=== PATIENT | female | born 1995 | race Caucasian/White ===

== ENCOUNTER 2018-12-31 06:04 | Inpatient (IN) | payer OTHER ==
[2018-12-31] MEDS ORDERED: Methylergonovine 0.2 MG/1 ML Amp IM PRN (07:27)
[2018-12-31] MEDS ORDERED: Misoprostol 100 MCG Tab RECTAL PRN (07:28)
[2018-12-31] MEDS ORDERED: Carboprost Tromethamine 250 MCG/1 ML Amp IM ONE (07:28)
[2018-12-31] MEDS ORDERED: Tranexamic Acid 1,000 MG in Sodium Chloride 0.9% 100 ML IV ONE (07:29)
[2018-12-31] MEDS ORDERED: Oxytocin/Normal Saline 30 UNIT/500 ML BAG IV SCH (07:30)
[2018-12-31] MEDS: Lactated Ringers 1,000 ML IV ONE ×2 (07:30→13:20)
[2018-12-31] MEDS ORDERED: Methylergonovine 0.2 MG/1 ML Amp ONE (07:34)
[2018-12-31] MEDS ORDERED: Oxytocin/Normal Saline 30 UNIT/500 ML BAG ONE (07:34)
[2018-12-31] MEDS ORDERED: Lidocaine 1% 30 ML SDV ONE (07:34)
[2018-12-31] MEDS ORDERED: Misoprostol 400 MCG (4 X 100 MCG TAB) ONE (07:34)
[2018-12-31] MEDS ORDERED: Carboprost Tromethamine 250 MCG/1 ML Amp ONE (07:34)
[2018-12-31] MEDS ORDERED: Ondansetron 4 MG/2 ML SDV ONE (07:38)
[2018-12-31] MEDS ORDERED: Lidocaine 1% 30 ML SDV INJECT PRN (07:43)
[2018-12-31] MEDS ORDERED: Ondansetron 4 MG/2 ML SDV IVPUSH PRN (07:44)
[2018-12-31] MEDS ORDERED: Metoclopramide 10 MG/2 ML SDV IVPUSH PRN (07:45)
[2018-12-31] MEDS ORDERED: Famotidine 20 MG/2 ML SDV IV PRN (07:48)
[2018-12-31] MEDS ORDERED: EPINEPHrine 1 MG/1 ML Amp ONE (07:52)
[2018-12-31] MEDS ORDERED: Aluminum Hydroxide/Magnesium Hydroxide/Simethicone Susp 30 ML Cup PO PRN ×2 (07:52→13:51)
[2018-12-31] MEDS ORDERED: fentaNYL 100 MCG/2 ML SDV ONE (07:52)
[2018-12-31] MEDS ORDERED: Calcium Carbonate 500 MG Tab.Chew PO PRN (07:52)
[2018-12-31] MEDS ORDERED: Acetaminophen 325 MG Tab PO PRN ×2 (07:54→13:51)
[2018-12-31] MEDS ORDERED: fentaNYL 100 MCG/2 ML SDV IVPUSH PRN (07:56)
[2018-12-31] MEDS ORDERED: Ondansetron 4 MG Tab.DIS PO PRN (07:58)
[2018-12-31] MEDS ORDERED: Nalbuphine 10 MG/1 ML Vial IM ONE (08:00)
[2018-12-31] MEDS: Lactated Ringers 1,000 ML IV SCH (08:10)
--- NOTE | 2018-12-31 08:54 | PCM.PRNOTE ---
- Free Text/Narrative Note: Requested to provide analgesia to full term patient in severe pain. Upon entering the room, patient is sitting on edge of bed complaining of severe abdominal/pelvic pain and discomfort. Procedure was discussed with patient including adverse outcomes and expectations. Pt consented to analgesia, SAB/ IT. Pt placed into a proper sitting position. Landmarks for SAB/IT were identified and marked. Hands were washed and appropriate PPE was applied. Back was prepped with betadine x3. A sterile, transparent, fenestrated drape was applied. Excess betadine was removed. Using 3 mL of a 1% lidocaine solution , a skin wheel was placed at the L2/L3 interspace. First attempt was unsuccessful. Second attempt was same prep and local but at the L3/L4 interspace. A 24 ga (4 inch) Pencan spinal needle was inserted until positive for CSF. Negative for heme or paresthesias. Injected fentanyl 30 mcg, sufentanil 25 mcg, and 7.5 mg of a 0.75% bupivacaine solution with an epi wash. Pt was placed left lateral position for approximately 20 minutes. There were zero complications or adverse outcomes. Will continue to monitor. Procedure Date & Time: 12/31/18 [id number]
[2018-12-31] MEDS ORDERED: Ibuprofen 600 MG Tab PO PRN (13:51)
[2018-12-31] MEDS ORDERED: Tranexamic Acid 1,000 MG in Sodium Chloride 0.9% 100 ML IV PRN (13:51)
[2018-12-31] MEDS ORDERED: Methylergonovine 0.2 MG Tab PO PRN (13:51)
[2018-12-31] MEDS ORDERED: Benzocaine/Menthol 20%-0.5% Spray 56 GM Canister TOP PRN (13:51)
[2018-12-31] MEDS ORDERED: Docusate Sodium 100 MG Cap PO PRN (13:51)
[2018-12-31] MEDS ORDERED: Carboprost Tromethamine 250 MCG/1 ML Amp IM PRN (13:51)
[2018-12-31] MEDS ORDERED: Zolpidem 5 MG Tab PO PRN (13:51)
[2018-12-31] MEDS ORDERED: Misoprostol 400 MCG (4 X 100 MCG TAB) PO PRN ×2 (13:51)
[2018-12-31] MEDS ORDERED: Famotidine 20 MG Tab PO PRN (13:51)
[2018-12-31] MEDS ORDERED: Sodium Chloride 0.9% 10 ML Syringe FLUSH PRN (13:51)
[2018-12-31] MEDS ORDERED: Simethicone 80 MG Tab.Chew PO PRN (13:51)
[2018-12-31] MEDS ORDERED: Hydrocortisone 2.5% Crm 30 GM Tube TOP PRN (13:51)
[2018-12-31] MEDS ORDERED: Acetaminophen/oxyCODONE 325-5 MG Tab PO PRN ×2 (13:51)
[2018-12-31] MEDS ORDERED: Lactated Ringers 1,000 ML IV SCH (14:00)
--- NOTE | 2018-12-31 14:15 | DEL ---
DATE: 12/31/2018 Ms. Gallegos has entered the hospital at about 8:00 a.m. this morning in spontaneous labor. Her contractions did space out moderately and decreased in quality for a time. She did have some judicious and cautious low-dose Pitocin augmentation of her labor therefore, also this brought the vertex from a high -3 to -4 station down into the pelvis, and we were able to do amniotomy when the head was at 0 station. The patient was approximately 6 to 7 cm dilated when she did come in this morning. She did proceed on very nicely to have a normal spontaneous vaginal delivery at 12:36 p.m. today. The baby was delivered from the occiput anterior position. This was a viable baby girl who had excellent scores of 9 and 9 and actually the baby's weight is pending at the present time. No episiotomy was utilized and no lacerations were sustained. The placenta was spontaneous and intact after a sample of cord blood was obtained. Placenta was delivered from the shiny Patel presentation. IV Pitocin was utilized and as mentioned above the vaginal delivery occurred at 12:36 p.m. and the placenta was delivered at 12:41 p.m. Her second stage of labor was only 45 minutes. The patient has remained very stable while in the delivery room. Her estimated blood loss was approximately 250 mL. Vital signs remained stable. As mentioned above, this was a viable baby girl, and the weight is pending. [facility] /[id number]
--- NOTE | 2018-12-31 14:21 | HP ---
HISTORY: This patient is a 23-year-old 2, para 1 patient, who is well known to me and to Dr. Tristan. The patient does enter the hospital early this morning on 12/31/2018, in labor. She has had frequent visits to Labor and Delivery over the last several weeks for false labor. She was also seen yesterday on L and D by myself with a reactive nonstress test and false labor. She is currently at 37 weeks 5 days' gestation by LMP and earlier ultrasounds. She does have a history of a seizure disorder, but it has been a number of months since she did have a seizure. She is currently on 2000 mg of Keppra twice a day and is followed by Dr. Guevara and Dr. Guevara's office. She is experiencing good movement today. She denies the leaking of any definite watery fluid or excess bleeding. She denies any headache at present. PAST OBSTETRICAL HISTORY: She did have an 8-pound 12-ounce baby boy named Rico, and he will be 7 years old in a few days. That delivery occurred in [facility] previously. She did have a fair amount of pushing evidently for the delivery of Rico. He is normal and doing well at the present time. PAST MEDICAL HISTORY: Please see our discussion above. She also has had prior history of anxiety and depression as well as prior history of substance abuse, mainly in the form of alcohol a number of years ago. She has been clean and has not abused any substances for many months. OTHER PAST MEDICAL HISTORY: Please see the EHR. It should be mentioned that she is immune to rubella and her group B Strep testing is negative from the genital tract. She is negative for hepatitis C and her hepatitis B surface antigen was negative. Her blood type is A positive and antibody screen was negative. FAMILY HISTORY: Noncontributory. SOCIAL HISTORY: She is here with her , Maykel. She is a nonsmoker and does not use alcohol. She does take vitamins and she has been very compliant with her visits. She does not work outside of the home at the present time. PHYSICAL EXAMINATION: Vital Signs: Weight is 287 pounds. Please see the EHR for her normal blood pressure and pulse and temperature. HEENT: Her sclerae are nonicteric. Lungs: Clear to A. Heart: Regular rhythm without murmur. Abdomen: Gravid and did measure 37 cm in the office yesterday. Estimated weight is 7 pounds 12 ounces. Vertex is the presenting part. She has negative CVA tenderness. heart tones are reactive with category 1 monitoring strip. Vaginal exam placed her at 8-9 cm, but initially the head was at -3 to possibly up to -4 station and amniotomy was not done initially. Her extremities reveal 1+ ankle edema. IMPRESSION: at 37 weeks 5 days' gestation in true labor. We will gently augment her to try to get further descent of the vertex and then consider amniotomy when the head is engaged. Low-dose Pitocin will be utilized. Also, we will continue her Keppra dosage at 2000 mg p.o. b.i.d. She has had recent OB ultrasound ordered by Dr. Tristan that did not confirm any definite macrosomia. We will, however, keep in mind the slight possibility of macrosomia. Her maternal weight is 287 pounds as mentioned above. We do anticipate spontaneous vaginal delivery. Please see our admission orders. [facility] /[id number]
[2018-12-31] MEDS: Ibuprofen 800 MG Tab PO PRN ×2 (15:00→23:20)
[2018-12-31] MEDS: LEVETIRACETAM 1000 MG PO SCH (21:17)
[2019-01-01] MEDS: Lactated Ringers 1,000 ML IV SCH ×2 (02:57→02:58)
[2019-01-01] MEDS: LEVETIRACETAM 1000 MG PO SCH (08:30)
[2019-01-01] MEDS ORDERED: Prenatal Multivitamin with Calcium/Folic Acid/Iron Tab PO SCH (09:00)
[2019-01-01] MEDS: Ibuprofen 800 MG Tab PO PRN (10:44)
--- NOTE | 2019-01-01 11:43 | DISCH ---
HISTORY OF PRESENT ILLNESS: This patient is a 23-year-old, now 2, para 2 patient, who has been followed closely by Dr. Tristan and by myself during this . She did enter the hospital on Wednesday morning, 12/31/2018 in active labor. She was at 37 weeks 5 days gestation based on LMP and early OB ultrasounds. She does have a history of seizure disorder and is currently on Keppra [address] Guevara and Dr. Guevara's office will be keeping in contact with her regarding tapering down her Keppra in the period. She also had a remote or past history of substance abuse, mainly in the form of alcohol several years ago, but the patient has been very stable and clean for a long period of time. She has had frequent episodes of false labor with numerous visits to Labor and Delivery, and finally the patient did go into labor yesterday as mentioned above. She was actually 6 to 7 cm dilated on admission. Her contractions actually did space out and weaken for a while and gentle low-dose Pitocin augmentation was utilized. When the head came down to 0 station, the patient was at about 9 cm dilated, and we did the amniotomy at that time with clear fluid. The heart tones have been category 1 at all times. Please see our admission history and physical as well as the delivery note. The patient did proceed on nicely to have a normal spontaneous vaginal delivery from the occiput anterior position and no episiotomy was required. There were no lacerations. She did have a viable baby girl who weighed 7 pounds 6 ounces and had score of 9 and 9. Placenta was spontaneous and intact. Estimated blood loss was approximately 250 mL. The patient has done well in the period. She is breast-feeding and that has not been fully established yet. Nonetheless, the patient does wish to go home today and she will keep in close contact with our nurses and our bridal consultant if any questions or problems pertaining to breast-feeding. OTHER INSTRUCTIONS: The patient will have healthy, well-balanced nutritional measures. She will utilize roughage, fiber, fruits, and vegetables, etc. for any constipation and she does have some slight constipation at the present time. We did emphasize the importance of progressive ambulation at home and she was instructed to contact us at once if any excess bleeding, excess pain, fever, or any problems with her lower extremities or breasts or chest and lungs, etc. She assures me that she will keep us closely informed. DISCHARGE MEDICATIONS: Consist of vitamins 1 daily and Colace 100 mg p.o. b.i.d. p.r.n. #12. As mentioned above, her discharge hemoglobin was 10.0. FOLLOWUP APPOINTMENT: She will see her baby doctor on of this coming week for her little girl. The patient will see either Dr. Tristan or myself for a visit in approximately 6 weeks. FINAL DIAGNOSES: 1. at 37 weeks 5 days gestation, delivered. 2. Seizure disorder, stable at present on Keppra 2000 mg p.o. b.i.d. 3. Past history of substance abuse or alcohol abuse several years ago and very stable and clean at present. 4. Frequent false labor during . OPERATIONS AND PROCEDURES: Normal spontaneous vaginal delivery of a viable girl weighing 7 pounds 6 ounces and score of 9 and 9. [facility] /[id number]
[2019-01-01 20:14] VITALS: BP 100/31
== END 2019-01-01 16:05 | disposition home or self-care (01) | DRG 807 ==
LOC: DL.OBCHECK 06:04 → DL.OB 06:47 → OBSVTOIN 12:36
PROVIDERS: ADMIT Obstetrics & Gynecology; ATTEND Obstetrics & Gynecology
PROC: 10E0XZZ Delivery of Products of Conception, External Approach (ICD-10-PCS; principal; 2018-12-31)
DX: O99.354 Diseases of the nervous system complicating childbirth (principal); Z37.0 Single live birth; G40.909 Epilepsy, unspecified, not intractable, without status epilepticus; O99.344 Other mental disorders complicating childbirth; F41.9 Anxiety disorder, unspecified; F32.9 Major depressive disorder, single episode, unspecified; Z3A.37 37 weeks gestation of pregnancy
CPT/HCPCS: 36415; 51701; 59409; 85025; A9270-GY; J2405; J2590; J7120

== ENCOUNTER 2020-06-08 21:19 | Observation (INO) | payer OTHER, MEDICAID ==
[2020-06-09] MEDS ORDERED: Penicillin G Potassium 5 MILLUNITS in Sodium Chloride 0.9% 100 ML IV ONE (00:48)
[2020-06-09] MEDS ORDERED: Lidocaine 1% 30 ML SDV INJECT PRN (01:05)
[2020-06-09] MEDS ORDERED: Lactated Ringers 1,000 ML IV ONE (01:05)
[2020-06-09] MEDS ORDERED: Misoprostol 400 MCG (4 X 100 MCG TAB) RECTAL PRN (01:05)
[2020-06-09] MEDS ORDERED: Carboprost Tromethamine 250 MCG/1 ML Amp IM PRN (01:05)
[2020-06-09] MEDS ORDERED: Ondansetron 4 MG/2 ML SDV IVPUSH PRN (01:05)
[2020-06-09] MEDS ORDERED: Methylergonovine 0.2 MG/1 ML Amp IM PRN (01:05)
[2020-06-09] MEDS ORDERED: Tranexamic Acid 1,000 MG in Sodium Chloride 0.9% 100 ML IV PRN (01:05)
[2020-06-09] MEDS ORDERED: Sodium Chloride 0.9% 10 ML Syringe FLUSH PRN (01:05)
[2020-06-09] MEDS ORDERED: Acetaminophen 325 MG Tab PO PRN (01:05)
[2020-06-09] MEDS ORDERED: Oxytocin/Normal Saline 30 UNIT/500 ML BAG IV SCH (01:15)
[2020-06-09] MEDS ORDERED: Lactated Ringers 1,000 ML IV SCH (01:15)
[2020-06-09] MEDS ORDERED: hydrOXYzine HCl 25 MG Tab PO PRN (02:52)
[2020-06-09] MEDS ORDERED: Nalbuphine 10 MG/1 ML Vial IM PRN (02:53)
--- NOTE | 2020-06-09 02:58 | OBOUT ---
DATE: 06/08/2020 TIME: 2147. REASON FOR NST: 1. Intrauterine at 36-4/7 weeks by 9-1/7 week ultrasound. 2. Questionable labor with contractions and cervical change. 3. History of fast labor with last delivery. 4. Group B Streptococcus positive. 5. Not a transfer candidate. 6. Epilepsy on Keppra. 7. Obesity. 8. Impaired glucose tolerance. 9. renal sinus separation, now less than 10 mm in 3rd trimester. No further followup indicated per UpToDate. 10.G3, P2-0-0-2. NST INTERPRETATION: During this time period, heart tones baseline is approximately 145 to 150, with at least two 15 x 15-beats per minute accelerations, making this strip reactive as well as reassuring. Tocometer reveals potential 6 contractions during this time. Rudy by patient. ASSESSMENT: 1. Nonstress test, reactive and reassuring. 2. Tocometer with contractions. PLAN: As part of the workup, the patient was rechecked in terms of her cervical change approximately 2 hours after initial evaluation done around 2200 hours. She did have cervical change and thinning of her cervix and at the current time of dictation plan is to admit the patient, and with her group B Streptococcus status start penicillin and follow clinically and closely. The patient understands and agrees with the above treatment plan. She is not considered a transfer candidate at this point in time. She has a history of fast labor and delivery and she is at 36-4/7 weeks today. Did discuss risk of potential for prematurity. She understands and agrees and wishes to proceed with admission here in [facility] with plan for delivery here if she goes into labor. We will continue to follow clinically and closely in the meantime. [facility] /[id number] ERNESTO
[2020-06-09] MEDS: Penicillin G Potassium 3 MILLUNITS in Sodium Chloride 0.9% 100 ML IV SCH ×2 (05:45→10:00)
[2020-06-09 09:59] VITALS: BP 111/46; PULSE 90
--- NOTE | 2020-06-09 14:38 | OBOUT ---
DATE: 06/09/2020 TIME: 11:18 to 11:24. REASON FOR NST: 1. Intrauterine , now 36-4/7 weeks by 9-1/7 week ultrasound with suspected early contractions/ contractions and possible early latent labor versus just contractions that are abating. 2. History of fast labors and deliveries. 3. GBS positive. 4. Not a transfer candidate due to the above. 5. Epilepsy on Keppra. 6. Obesity. 7. Impaired glucose tolerance. 8. History of renal sinus separation. 9. Questionable vaginal leaking with negative AmniSure. 10.G3, P2-0-0-2. NST INTERPRETATION: During this time period, heart tones baseline is approximately 120 beats, with at least two 15 x 15 beats per minute accelerations, making this strip reactive as well as reassuring. Tocometer reveals no evidence of contractions. Temperature 96.8, blood pressures have been stable. ASSESSMENT: 1. Nonstress test-reactive and reassuring. 2. Tocometer without contractions. PLAN: We will proceed with discharge. Please see discharge plan for further details at this point in time. We will continue to follow clinically and closely. Reason to return to the emergency were discussed with the patient and her and they understand and agree. [facility] /[id number]
--- NOTE | 2020-06-10 07:10 | DISCH ---
ADMITTING DIAGNOSES: 1. Intrauterine at 36-4/7 weeks by 9-1/7 week ultrasound. 2. Suspected labor with contractions and cervical change. 3. History of fast labor and delivery with last delivery and lives far from the hospital. 4. GBS positive. 5. Not a transfer candidate due to the above. 6. Epilepsy on [facility]. 7. Obesity. 8. Impaired glucose tolerance. 9. History of renal sinus separation on ultrasound, less than 10 mm. No need for further workup according to UpToDate. 10.Questionable vaginal leaking. 11.G3, P2-0-0-2. DISCHARGE DIAGNOSES: 1. Intrauterine at 36-4/7 weeks by 9-1/7 week ultrasound. 2. Suspected labor with contractions and cervical change. 3. Suspect early latent labor with no evidence of significant cervical pattern changer serial evaluations. 4. History of fast labor and delivery with last delivery and lives far from the hospital. 5. Group B Streptococcus positive - status post penicillin x2 doses. 6. Not a transfer candidate due to the above. 7. Epilepsy on [facility]. 8. Obesity. 9. Impaired glucose tolerance. 10.History of renal sinus separation on ultrasound, less than 10 mm. No need for further workup according UpToDate. 11.Questionable vaginal leaking - negative AmniSure. 12.G3, P2-0-0-2. HISTORY OF PRESENT ILLNESS: Please see H and P done in conjunction with Russel Vora, MS-3. SUMMARY OF HOSPITAL COURSE: The patient was admitted on the above date with above diagnosis. Initially evaluated late evening on 06/08/2020, NST was performed, serial evaluations were done with the cervix, did reveal cervical pattern changer a 2-hour period. She was subsequently seen and evaluated and felt to not be a transfer candidate due to her history of fast labor with delivery of her last child as well as cervical change with contractions and living far from the hospital. She was subsequently admitted, followed over at least 12 hours. She did receive some Nubain receipt and report clerk on date of discharge, contractions seemed to liz. Cervical exam around approximately 11:20 a.m. was 4 cm, 70% effaced, 0 to -1 station, vertex suspected, which was essentially unchanged from initial evaluation upon admission. Shared decision was made to proceed with discharging patient home with precautions as well as reasons to go to the emergency room. She understood and agreed. CONDITION ON DISCHARGE COMPARED TO CONDITION ON ADMISSION: Improved. DISCHARGE INSTRUCTIONS: 1. Diet as tolerated. 2. Activity as tolerated. 3. Follow up on Wednesday06/11/[address] in the clinic with Dr. Verma. INVESTIGATIONS WHILE IN THE HOSPITAL: Rapid COVID was negative. CBC reveals a white cell count 11.7, hemoglobin 11.3, and platelets of 261. AmniSure was negative. The patient and her understood and agreed with the above treatment plan. I did discuss with them if contractions increase in frequency or intensity, or if rupture of membranes is evident to return back to the hospital. They understand and agree with this treatment plan. NSTs were performed upon admission and upon discharge and felt to be reactive and reassuring. Please see discharge paperwork for further details as well. [facility] /[id number]
--- NOTE | 2020-06-14 14:40 | HP ---
PATIENT IDENTIFICATION: Lida Gallegos is a 25-year-old G3, P2-0-0-2 with intrauterine at 36 weeks 3 days confirmed with ultrasound on 11/30/2019 at gestational age 9 weeks 1 day, presents with vaginal leaking and contractions. HISTORY OF PRESENT ILLNESS: The patient describes vaginal leaking starting this morning of a clear fluid which we monitored throughout the day today, noticed increased volume in addition to some spotting and mucousy discharge. Also noted some contractions happening at first every 15 minutes and then increasing to every 3-1/2 minutes beginning this morning and persisting, getting stronger and worsening overtime. She has also noted tightening in her pelvic region and pressure. She rates her discomfort and pain as a 6 to 7/10. [facility]: The patient's blood type ABO, A positive. Antibody screen negative, Rubella immune, RPR nonreactive, hep B surface antigen nonreative, HIV nonreactive, gonorrhea negative, chlamydia negative, hep C antibody nonreactive. Wet prep negative. Group B strep positive. Three-hour glucose tolerance test passed. Urine drug screen not completed. OB HISTORY: 1. 01/19/2012, 39 weeks 6 days, delivered term male, 8 pounds 12.5 ounces via spontaneous vaginal delivery. 2. 12/31/2018, 36 weeks 5 days, term female, 7 pounds 6.2 ounces, spontaneous vaginal delivery. PAST MEDICAL HISTORY: Significant for closed head injury in 2019, depression, epilepsy, migraines, substance abuse, suicidal behavior with attempted self- injury, overdose of drugs/medicinal substance, intentional self-harm. PAST SURGICAL HISTORY: [employer] teeth extraction as a child. FAMILY HISTORY: Significant for mother with epilepsy, father with alcohol abuse, sister with epilepsy, maternal grandmother with stroke, maternal grandfather with heart attack and cancer. SOCIAL HISTORY: The patient lives in [place], [place]. Does not currently work. to Maykel. Lives at home with 2 children, 1 son and 1 daughter, goldfish at home. REVIEW OF SYSTEMS: Reviewed and felt to be relatively noncontributory. The patient does describe some change in bowel habits towards the end of her with diarrhea. PHYSICAL EXAMINATION: Vital Signs: Temperature 98.8, blood pressure 112/50, pulse 129. Appearance: Female, appears stated age, breathing through comfortably, in no acute distress. HEENT: Head is atraumatic. EOMs intact. No scleral icterus. No sore throat. Mucous membranes moist. Neck: No obvious tenderness. No lymphadenopathy. Lungs: Clear to auscultation bilaterally. No increased work of breathing. Heart: Normal S1 and S2. Regular rate and rhythm, without rub or gallop. Abdomen: Gravid, nontender, nondistended. Bowel sounds positive. No organomegaly or obvious hernia. No rebound, rigidity, or guarding. : Performed initially by nurse. Noted 2.5 cm dilation 2 hours earlier. Exam later performed by Dr. Verma, 4 plus centimeters dilated, 70% effaced, -1 station, vertex station suspected. Bag of water felt. Normal external female genitalia. Normal position and presentation of the urethra. Extremities: Scant peripheral edema. Muscle strength symmetric in extremities. Psychiatric: Mood and affect congruent. Judgement and insight intact. Skin: No cyanosis, clubbing, jaundice, or rash. LABORATORY DATA: Amnisure negative. ASSESSMENT: 1. Intrauterine at 36-4/7 weeks confirmed by 9-1/2 week ultrasound. 2. Labor and cervical change. 3. History of fast labor with last delivery and far from hospital. 4. Group B Streptococcus positive. 5. Not a transfer candidate due to the above. 6. Epilepsy on Keppra. 7. Obesity. 8. Impaired glucose tolerance. 9. renal sinus , less 10 mm. 10.G3, P2-0-0-2. 11.Vaginal leaking, negative Amnisure. PLAN: We will admit for evaluation and monitoring. We will give penicillin for group B Streptococcus positivity. Follow for potential continuation of labor. Discussed prematurity with the patient. The patient understands and agrees with treatment plan. She is not a transfer candidate and desires to stay overnight for further observation and evaluation. We will monitor closely. [facility] /[id number]
== END 2020-06-09 11:45 | disposition home or self-care (01) ==
LOC: DL.OBCHECK 21:19 → DL.OB 06-09 01:02 → UNDOADMOB 06-09 01:02 → DL.OB 06-09 01:06 → UNDODISOB 06-09 11:45
PROVIDERS: ADMIT Family Medicine; ATTEND Family Medicine
DX: O99.353 Diseases of the nervous system complicating pregnancy, third trimester (principal); G40.909 Epilepsy, unspecified, not intractable, without status epilepticus; O99.213 Obesity complicating pregnancy, third trimester; E66.9 Obesity, unspecified; O99.810 Abnormal glucose complicating pregnancy; O99.820 Streptococcus B carrier state complicating pregnancy; Z20.822 Contact with and (suspected) exposure to COVID-19; Z3A.36 36 weeks gestation of pregnancy; Z79.899 Other long term (current) drug therapy
CPT/HCPCS: 36415; 84112; 85027; 87635; J2300; J2540; J7120; U0002

== ENCOUNTER 2020-06-19 20:28 | Inpatient (IN) | payer OTHER, MEDICAID ==
[2020-06-19] MEDS ORDERED: Penicillin G Potassium 5 MILLUNITS in Sodium Chloride 0.9% 100 ML IV STA (21:56)
[2020-06-19] MEDS ORDERED: Sodium Chloride 0.9% 10 ML Syringe FLUSH PRN (22:00)
--- NOTE | 2020-06-20 01:27 | PN ---
DATE: 06/19/2020 TIME: 2345 hours. SUBJECTIVE: The patient's contractions are getting more often, more stronger. She feels in the lower abdomen and back. She denies any excessive leaking. OBJECTIVE: Ferning and AmniSure were negative. heart tones in the 140s range with some accelerations. Tocometer with contractions every 2 to 3 minutes. Vaginal exam reveals her to be 5 cm, 65% to 70% effaced, vertex suspected. Bag of water felt with some minor bulge to the bag of water. ASSESSMENT AND PLAN: 1. Intrauterine now at 38 and 1/7 weeks by 9 and 1/7 week ultrasound with questionable rupture of membranes/vaginal leaking with negative tests as above. 2. Contractions with some cervical change. The patient lives far from the hospital. Has a history of fast labors and deliveries when she does go into active labor. Shared decision was made to proceed with continuing with the penicillin that she has been given for GBS positive status and reevaluation in a few hours and follow clinically and closely. 3. GBS positive. One dose of penicillin has been given and another one will be given approximately 4 hours after that. 4. Epilepsy, on Keppra. 5. Impaired glucose tolerance. 6. Pyelectasis on ultrasound, less than 1 cm. No need for ultrasound, up to date. We will follow closely. 7. G3, P2-0-0-2. PLAN: The patient will be continued to be followed closely. If continues to have cervical change, we will follow for active labor. May need further interventions and we will follow closely. The patient understands and agrees with the above treatment plan. [facility] /[id number] ERNESTO
[2020-06-20] MEDS: Penicillin G Potassium 2.5 MILLUNITS in Sodium Chloride 0.9% 100 ML IV SCH ×4 (02:50→16:40)
[2020-06-20] MEDS ORDERED: Misoprostol 400 MCG (4 X 100 MCG TAB) RECTAL PRN (03:54)
[2020-06-20] MEDS ORDERED: Lactated Ringers 1,000 ML IV ONE (03:54)
[2020-06-20] MEDS ORDERED: Tranexamic Acid 1,000 MG in Sodium Chloride 0.9% 100 ML IV PRN (03:54)
[2020-06-20] MEDS ORDERED: Methylergonovine 0.2 MG/1 ML Amp IM PRN (03:54)
[2020-06-20] MEDS ORDERED: Carboprost Tromethamine 250 MCG/1 ML Amp IM PRN (03:54)
[2020-06-20] MEDS ORDERED: Lidocaine 1% 30 ML SDV INJECT PRN (03:54)
[2020-06-20] MEDS ORDERED: Ondansetron 4 MG/2 ML SDV IVPUSH PRN (03:54)
[2020-06-20] MEDS ORDERED: Acetaminophen 325 MG Tab PO PRN (03:54)
[2020-06-20] MEDS ORDERED: Lactated Ringers 1,000 ML IV SCH (04:00)
[2020-06-20] MEDS ORDERED: Oxytocin/Normal Saline 30 UNIT/500 ML BAG IV SCH (04:00)
--- NOTE | 2020-06-20 05:28 | HP ---
DATE OF SERVICE: 06/19/2020 with extension into 06/20/2020. PATIENT IDENTIFICATION: Lida Gallegos is a 25-year-old G3, P2-0-0-2 intrauterine at 38 weeks by 9-1/7 week ultrasound, presents with vaginal leaking, pressure, and contraction. HISTORY OF PRESENT ILLNESS: The patient states on date of admission, in the office support specialist when she woke up, she noticed some clear trickling from the vaginal area described as clear fluid that seemed to wax and wane. Associated with this has been some increasing pressure in the lower pelvic vaginal area and contractions that seem to come every 2 to 5 minutes. Rated 5 to 6 out of 10 at current time of evaluation initially on the 17 and have been worsening over time. To put this in context, she is GBS positive. Has epilepsy on Keppra and pyelectasis was noted on an ultrasound prenatally on the baby, less than 1 cm, and no need for ultrasound unless significant symptoms develop per up to date. Records called for, reviewed as below and also by patient history. [facility]: Reveal ABO blood type A positive. Negative antibody. Rubella immune. RPR nonreactive. Negative hepatitis B surface antigen, hep C, HIV, GC, and chlamydia. Wet prep negative. GBS was positive. Three-hour GTT was passed. One-hour GTT was not. Urine drug screen not completed. OB HISTORY: 1. 01/19/2012, 39 weeks 6 days, delivered term male, 8 pounds 12.5 ounces via spontaneous vaginal delivery. 2. 12/31/2018, 36-5/7 weeks, term female, 7 pounds 6.2 ounces, spontaneous vaginal delivery. PAST MEDICAL HISTORY: Remarkable for closed head injury in 2019, depression, epilepsy, migraine, substance abuse, suicidal behavior with attempted self- injury in the past, overdose of drugs/intentional self-harm. PAST SURGICAL HISTORY: Harrison teeth extraction when younger. FAMILY HISTORY: Significant for mother with epilepsy. Father with alcohol abuse. Sister with epilepsy. Maternal grandmother with stroke. Maternal grandfather with heart attack and cancer. SOCIAL HISTORY: The patient lives in [place], [place]. to Viral, who presents later on the date of admission, 06/19/2020. They both live in [place] with 2 children, 1 son and 1 daughter. They also have goldfish at the house. REVIEW OF SYSTEMS: Reviewed fully and felt to be contributory for the above. She denies any spotting, bleeding, or leaking. Denies any headaches, visual changes, or upper abdominal pain. OBJECTIVE: Vital Signs: Blood pressure 118/58, heart rate is 110. The patient feels afebrile. Respiratory rate is between 12 and 16. Appearance: Female appears stated age, acting appropriate for age. Breathing through some contractions, other times not, but answering questions appropriately in between. Head: Atraumatic. EOMs intact. PERRLA. No scleral icterus. No obvious otorrhea or rhinorrhea. Mucous membranes moist. Neck: No obvious tenderness. Lungs: Clear to auscultation bilaterally. No increased work of breathing. Heart: S1, S2. Regular rate and rhythm. Abdomen: Gravid. Ernie's indeterminate. Nontender, nondistended. Bowel sounds positive. No organomegaly, pulsatile masses, or hernias. No rebound, rigidity, or guarding. : Normal external female genitalia. Normal position and presentation of urethra. Sterile speculum exam done. Negative for pooling, and AmniSure and ferning were done, which were also negative. Vaginal exam thereafter revealed her to be 4+ cm dilated, 65% to 70% effaced, -1 station, vertex suspected, and suspected bag of water felt. Extremities: Trace peripheral edema. No calf pain. Mood and affect congruent. Judgment and insight intact. Skin: Without any cyanosis, clubbing, or jaundice. AmniSure and ferning were negative. LABORATORY DATA: Pending at current time of dictation is CBC and rapid COVID, which have just been ordered. ASSESSMENT: 1. Intrauterine at 38 weeks by 9-/7 week ultrasound. 2. Questionable labor as having contractions. 3. Questionable leaking. Doubt spontaneous rupture of membranes based on evaluations done as above. 4. Group B Streptococcus positive. Given her history of fast labors, deliveries, living far from the hospital, start her on penicillin. 5. Epilepsy, on Keppra. 6. Impaired glucose tolerance. 7. Pyelectasis seen prenatally, less than 1 cm on the ultrasound. No need for ultrasound per up to date. We will follow closely. 8. G3, P2-0-0-2. PLAN: To admit the patient for observation. The patient was evaluated initially on 06/19/2020. Date of admission, penicillin was started. Please see orders for further detail. During this time period, there was another emergency on the OB floor. I, Dr. Verma, attended and then serially evaluated the patient as able. She did have some change at approximately 2345 hours on 06/19/2020 of 5 cm, 65% to 70% effaced, -1 station, vertex suspected, and bag of water felt. The patient will be admitted for observation. Penicillin will be given. We will follow for active labor, significant cervical change, and may consider intervention if she has any of this. Please see further dictations for further details. Otherwise, we will continue to follow clinically and closely at this point in time. [facility] /[id number]
--- NOTE | 2020-06-20 05:42 | PN ---
DATE: 06/20/2020 SUBJECTIVE: The patient's contractions she states are getting stronger rated at 6 to 7 out of 10, felt in the lower abdomen, radiating into back. OBJECTIVE: heart tones 130s and reassuring. Tocometer reveals contractions anywhere from 2 minutes to 4 to 5 minutes apart serially. Vaginal exam reveals her to be 5 cm, 65% to 70% effaced, -1 station, vertex suspected, and bulging bag of water noted. ASSESSMENT: 1. Intrauterine , now at 38-1/7 weeks with possible early latent labor versus starting active labor with mild cervical ion exchange operator serial evaluations since admission on 06/19/2020. 2. Questionable vaginal leaking. Negative AmniSure and ferning. 3. Group B Streptococcus positive. Penicillin has been given. As she has had over 2 doses now, continue with every 4 hours. 4. Epilepsy, on Keppra. 5. Impaired glucose tolerance. 6. Pyelectasis, on ultrasound, less than 1 cm. No need for further evaluation or ultrasound unless concerns postnatally. 7. G3, P2-0-0-2. PLAN: The patient has been admitted for observation. We will proceed with another dose of penicillin in the later morning and reevaluate her cervix at that point in time. If she starts going into more active labor pattern, may need evaluation sooner, and we will continue to follow clinically and closely at this point in time. The patient understands and agrees with above treatment plan. [facility] /[id number]
[2020-06-20] MEDS ORDERED: EPINEPHrine 1 MG/1 ML Amp ONE (08:53)
[2020-06-20] MEDS ORDERED: fentaNYL 100 MCG/2 ML SDV ONE (08:53)
[2020-06-20] MEDS ORDERED: Sodium Bicarbonate 4.2% 2.5 MEQ/5 ML SDV ONE (08:54)
--- NOTE | 2020-06-20 09:48 | PCM.SN.2 ---
- Free Text/Narrative Note: Intrathecal. Sitting position, sterile prep and drape. 1% lidocaine w bicarb for skinwheal to L3 L4 interspace x 2. Introducer x 3, POS CSF , neg heme, neg parasthesia. 0.1 ml 1:1000 pf epi, 20 mcg pf sufenta, 30 mcg pf fentanyl. 0.04 ml pf NS and 6 mg of 0.75 % pf marcaine injected after CSF aspiration. Pt to L lateral position. Procedure time 0900 to 0945
--- NOTE | 2020-06-20 09:51 | PN ---
DATE: 06/20/2020 SUBJECTIVE: The patient has had contractions overnight. She has taken a shower. OBJECTIVE: Vital Signs: heart tones were in the 140s to 150s. Genitourinary: During evaluation, tocometer reveals continued contractions every few minutes on average. Vaginal exam reveals to be 5 cm, 70% effaced, -1 station, vertex suspected, and bulging bag of water. ASSESSMENT AND PLAN: 1. Intrauterine at 38 and 1/7 weeks by 9 and 1/7 weeks ultrasound with questionable early latent labor versus going into active labor. 2. GBS positive. 3. Epilepsy, on Keppra. 4. Impaired glucose tolerance. 5. Pyelectasis on ultrasound, less than 1 cm. No need for ultrasound or further workup, recordings are up to date, we will follow clinically after delivery. 6. G3, P2-0-0-2. PLAN: As the patient is established with Dr. Tristan, we will contact her for recommendations at this point in time and we will proceed from there. She may overtake care of the patient at this time or I may be back to re-evaluate the patient and I did discuss this with the patient. She understands and agrees with the above treatment plan. [facility] /[id number]
[2020-06-20] MEDS ORDERED: diphenhydrAMINE 50 MG/ML SDV IVPUSH ONE (11:33)
[2020-06-20] MEDS ORDERED: Benzocaine/Menthol 20%-0.5% Spray 56 GM Canister TOP PRN (16:43)
[2020-06-20] MEDS ORDERED: Oxytocin 10 Units/1 ML SDV IM PRN (16:43)
[2020-06-20] MEDS ORDERED: Docusate Sodium 100 MG Cap PO PRN (16:43)
[2020-06-20] MEDS ORDERED: Simethicone 80 MG Tab.Chew PO PRN (16:43)
[2020-06-20] MEDS: Ibuprofen 800 MG Tab PO PRN (20:32)
[2020-06-21] MEDS: Ibuprofen 800 MG Tab PO PRN (04:47)
[2020-06-21] MEDS ORDERED: Prenatal Multivitamin with Calcium/Folic Acid/Iron Tab PO SCH (09:00)
[2020-06-21 11:07] VITALS: BP 112/52; PULSE 84
[2020-06-21] MEDS ORDERED: fentaNYL 100 MCG/2 ML SDV ITHECAL ONE (12:42)
[2020-06-21] MEDS ORDERED: Sodium Chloride 0.9% 20 ML SDV IV ONE (12:42)
[2020-06-21] MEDS ORDERED: EPINEPHrine 1 MG/1 ML Amp ONE (12:42)
[2020-06-21] MEDS ORDERED: Sodium Bicarbonate 4.2% 2.5 MEQ/5 ML SDV ONE (12:42)
--- NOTE | 2020-06-21 15:32 | PCM.DEL ---
L & D Note - General Info Date of Service: 06/20/20 Mother's Due Date: 07/04/20 - Delivery Note Labor: Spontaneous, Induced by ARM Delivery Outcome: Livebirth Delivery Method: Spontaneous Vaginal Delivery-Single Presentation: Vertex Nuchal Cord: None Anesthesia Type: Intrathecal Amniotic Fluid Description: Clear Episiotomy Type: None Laceration: None Placenta: Intact, Spontaneous Cord: 3 Vessels Estimated Blood Loss: 300 Resuscitation Needed: No : Bulb Syringe, Stimulated, Warmed Provider: Janet Tristan Score 1 min: 9 Score 5 min: 9 Delivery Comments (Free Text/Narrative):: Patient presented to L&D at 38w0d with increased contractions. Due to her distance from the hospital, she was monitored overnight. Patient received PCN for GBS prophylaxis. She gradually progressed in early labor. At 0900, she was noted to be 5 cm dilated so AROM was performed for moderate clear fluid. Patient received an intrathecal for pain control. She rapidly progressed to complete dilation. Patient pushed for 2 contractions and delivered a viable male with Apgars of 9 and 9 at 1 and 5 minutes respectively. Umbilical cord was clamped x 2 and cut after pulsing ceased. Cord blood was collected. Placenta delivered about 7 minutes later and was noted to be intact. Pitocin was initiated. Uterus was noted to be firm and bleeding was appropriate. Perineum was inspected and noted to be intact. Uterus was noted to be firm. Patient tolerated the procedure well, and there were no immediate complications. - General Info Date of Service: 06/20/20 - Patient Data Vitals - Most Recent: Last Vital Signs Temp 37.1 C 06/21/20 08:00 Pulse 84 06/21/20 08:00 Resp 14 06/21/20 08:00 BP 112/52 L 06/21/20 08:00 Pulse Ox 100 06/20/20 19:42 Weight - Most Recent: 136.078 kg Med Orders - Current: Current Medications Acetaminophen (Tylenol) 650 mg PO Q4H PRN PRN Reason: Pain (Mild 1-3) and fever Last Admin: 06/21/20 03:24 Dose: 650 mg Documented by: Benzocaine/Menthol (Dermoplast Pain Relief Michie) 0 gm TOP Q4H PRN PRN Reason: Perineal comfort measures Last Admin: 06/20/20 20:38 Dose: 1 spray Documented by: Carboprost Tromethamine (Hemabate Ds) 250 mcg IM ASDIRECTED PRN PRN Reason: HEMORRHAGE Docusate Sodium (Colace) 100 mg PO BID PRN PRN Reason: Constipation Last Admin: 06/21/20 10:31 Dose: 100 mg Documented by: Lactated Ringer's (Ringers, Lactated) 1,000 mls @ 125 mls/hr IV ASDIRECTED [facility] Last Admin: 06/20/20 09:30 Dose: 125 mls/hr Documented by: Tranexamic Acid 1,000 mg/ (Sodium Chloride) 110 mls @ 660 mls/hr IV ONETIME PRN PRN Reason: Bleeding Oxytocin/Sodium Chloride (Pitocin In Ns 30 Unit/500 Ml) 30 unit in 500 mls @ 2 mls/hr IV TITRATE [facility]; Protocol Last Titration: 06/20/20 16:00 Dose: Infused Documented by: Ibuprofen (Motrin) 800 mg PO Q8H PRN PRN Reason: Cramping Last Admin: 06/21/20 04:47 Dose: 800 mg Documented by: Methylergonovine Maleate (Methergine) 0.2 mg IM ASDIRECTED PRN PRN Reason: Hemorrhage Misoprostol (Cytotec) 800 mcg RECTAL ASDIRECTED PRN PRN Reason: Hemorrhage Ondansetron HCl (Zofran) 4 mg IVPUSH Q4H PRN PRN Reason: Nausea/Vomiting Last Admin: 06/20/20 09:01 Dose: 4 mg Documented by: Oxytocin (Pitocin) 10 unit IM ONETIME PRN PRN Reason: Bleeding Prenat Multivit/Evaluation Manager/Iron/Folic Ac ( Plus Iron) 1 each PO DAILY [facility] Last Admin: 06/21/20 10:29 Dose: 1 each Documented by: Simethicone (Simethicone) 80 mg PO Q4H PRN PRN Reason: Gas Sodium Chloride (Saline Flush) 10 ml FLUSH ASDIRECTED PRN PRN Reason: Keep Vein Open Discontinued Medications Diphenhydramine HCl (Benadryl) 25 mg IVPUSH ONETIME ONE Stop: 06/20/20 11:34 Last Admin: 06/20/20 11:41 Dose: 25 mg Documented by: Epinephrine HCl (Adrenalin) Confirm Administered Dose 1 mg .ROUTE .STK-MED ONE Stop: 06/20/20 08:54 Last Admin: 06/20/20 17:13 Dose: Not Given Documented by: Epinephrine HCl (Adrenalin) 0.1 mg .XX .STK-MED ONE Stop: 06/21/20 12:43 Fentanyl (Sublimaze) Confirm Administered Dose 100 mcg .ROUTE .STK-MED ONE Stop: 06/20/20 08:54 Last Admin: 06/20/20 17:13 Dose: Not Given Documented by: Fentanyl (Sublimaze) 30 mcg ITHECAL .STK-MED ONE Stop: 06/21/20 12:43 Penicillin G Potassium 5 (millunits/ Sodium Chloride) 100 mls @ 200 mls/hr IV ONETIME STA Stop: 06/19/20 22:25 Last Admin: 06/19/20 22:30 Dose: 200 mls/hr Documented by: Penicillin G Potassium 2.5 (millunits/ Sodium Chloride) 100 mls @ 200 mls/hr IV Q4H IV[facility] Last Admin: 06/20/20 16:40 Dose: Not Given Documented by: Lactated Ringer's (Ringers, Lactated) 1,000 mls @ 500 mls/hr IV BOLUS ONE Stop: 06/20/20 05:53 Last Admin: 06/20/20 09:03 Dose: 999 mls/hr Documented by: Lidocaine HCl (Xylocaine-Mpf 1%) 30 ml INJECT ASDIRECTED PRN PRN Reason: Perineal Repair Sodium Bicarbonate (Sodium Bicarbonate 4.2%) Confirm Administered Dose 2.5 meq .ROUTE .STK-MED ONE Stop: 06/20/20 08:55 Last Admin: 06/20/20 17:13 Dose: Not Given Documented by: Sodium Bicarbonate (Sodium Bicarbonate 4.2%) 0.5 meq .XX .STK-MED ONE Stop: 06/21/20 12:43 Sodium Chloride (Normal Saline) 0.4 ml IV .STK-MED ONE Stop: 06/21/20 12:43 Sufentanil Citrate (Sufenta) Confirm Administered Dose 50 mcg .ROUTE .STK-MED ONE Stop: 06/20/20 08:54 Last Admin: 06/20/20 17:13 Dose: Not Given Documented by: Sufentanil Citrate (Sufenta) 20 mcg ITHECAL .STK-MED ONE Stop: 06/21/20 12:43 - Problem List & Annotations (1) care SNOMED Code(s): 367067338, 40781018, 921604457, 238823814 Code(s): Z34.90 - ENCNTR FOR SUPRVSN OF NORMAL , UNSP, UNSP TRIMESTER Status: Acute (2) (normal spontaneous vaginal delivery) SNOMED Code(s): 79077243, 954986519 Code(s): O80 - ENCOUNTER FOR FULL-TERM UNCOMPLICATED DELIVERY Status: Acute (3) Anemia in preg-unspec SNOMED Code(s): 68027183 Code(s): O99.019 - ANEMIA COMPLICATING , UNSPECIFIED TRIMESTER Status: Acute (4) GBS (group B Streptococcus carrier), +RV culture, currently SNOMED Code(s): 7740747476783, 079049849, 6160460170234 Code(s): O99.820 - STREPTOCOCCUS B CARRIER STATE COMPLICATING Status: Acute (5) Impaired glucose in , antepartum SNOMED Code(s): 845834602, 118717366 Code(s): O99.810 - ABNORMAL GLUCOSE COMPLICATING Status: Acute (6) Pyelectasis of fetus on ultrasound SNOMED Code(s): 570288990 Code(s): O35.8XX0 - MATERNAL CARE FOR OTH ABNORMALITY AND DAMAGE, UNSP Status: Acute - Problem List Review Problem List Initiated/Reviewed/Updated: Yes - My Orders Last 24 Hours: My Active Orders 06/20/20 16:43 Benzocaine/Menthol [Dermoplast Pain Relief Michie] See Dose Instructions TOP Q4H PRN Docusate Sodium [Colace] 100 mg PO BID PRN Ibuprofen [Motrin] 800 mg PO Q8H PRN Oxytocin [Pitocin] 10 unit IM ONETIME PRN Simethicone 80 mg PO Q4H PRN 06/20/20 16:44 Assess Lochia [WOMSER] Per Unit Routine Assess Uterine Involution [WOMSER] Per Unit Routine Breast Pump [WOMSER] Per Unit Routine Ice Therapy [OM.PC] Per Unit Routine Perineal Care [OM.PC] Per Unit Routine Sitz Bath [OM.PC] Per Unit Routine 06/21/20 09:00 Vit with Ca/FA/Iron [ Plus Iron] 1 each PO DAILY - Assessment Assessment:: 25-year-old now status post at 38w0d - Plan Plan:: 1. Initiate routine cares. 2. Plans to breastfeed 3. Anticipate discharge 06/22/2020 Janet Tristan MD
--- NOTE | 2020-06-21 15:34 | PCM.DCSUM1 ---
Discharge Summary - Hospital Course Free Text/Narrative:: 25-year-old, now , PPD#1 s/p at 38w0d Diagnosis: Stroke: No - Discharge Data Discharge Date: 06/21/20 Discharge Disposition: Home, Self-Care 01 Condition: Good - Referral to Home Health Primary Care Physician: Mitch Verma MD - Patient Summary/Data Operative Procedure(s) Performed: None Complications: None Consults: None Labs Pending at D/C: None Recommended Follow-up Testing/Procedures: None - Patient Instructions Diet: Usual Diet as Tolerated Activity: As Tolerated, No Lifting Over 20 Pounds Driving: May Drive Today Showering/Bathing: August Shower Notify Provider of: Fever, Increased Pain, Nausea and/or Vomiting - Discharge Plan *PRESCRIPTION DRUG MONITORING PROGRAM REVIEWED*: Not Applicable *COPY OF PRESCRIPTION DRUG MONITORING REPORT IN PATIENT AAMIR: Not Applicable Home Medications: Home Meds Cyanocobalamin/Folic AC/Vit B6 [Folic Acid-Vit B6-Vit B12] 1 each PO DAILY 12/17/18 [History] Pnv No.95/Ferrous Fum/Folic AC [ Vitamin Tablet] 1 each PO DAILY 12/17/18 [History] levETIRAcetam [Keppra] 2,000 mg PO BID 12/17/18 [History] Ascorbic Acid [Vitamin C] 500 mg PO DAILY 06/09/20 [History] Ferrous Sulfate 325 mg PO DAILY 06/09/20 [History] Acetaminophen [Tylenol] 650 mg PO Q4H PRN tablet 06/21/20 [Rx] Docusate Sodium [Colace] 100 mg PO BID PRN cap 06/21/20 [Rx] Ibuprofen [Motrin] 800 mg PO Q8H PRN tablet 06/21/20 [Rx] Patient Handouts: Care After Vaginal Delivery Referrals: Janet Tristan MD [Physician] - (6-8 weeks for visit) - Discharge Summary/Plan Comment DC Time >30 min.: No Discharge Summary/Plan Comment: Patient requests discharge at 24 hours. She is doing well. Discharge home. Follow-up in 6-8 weeks for routine care. Reasons to return sooner or present to the ED were reviewed. Patient voiced her understanding, and all questions were answered. - General Info Date of Service: 06/21/20 Subjective Update: Patient is doing well. Vaginal bleeding has decreased slightly. Pain is well controlled with OTC analgesics. No dizziness or lightheadedness. Urinating and passing gas, has not yet had a bowel movement. No fever, chills or headache. Tolerating a general diet. Ambulating without difficulty. and supplementing--going well. No concerns per patient or per nursing staff. Functional Status: Reports: Pain Controlled, Tolerating Diet, Ambulating, Urinating. Denies: New Symptoms - Review of Systems General: Reports: No Symptoms HEENT: Reports: No Symptoms Pulmonary: Reports: No Symptoms Cardiovascular: Reports: No Symptoms Gastrointestinal: Reports: No Symptoms Genitourinary: Reports: No Symptoms Musculoskeletal: Reports: No Symptoms Skin: Reports: No Symptoms - Patient Data Vitals - Most Recent: Last Vital Signs Temp 37.1 C 06/21/20 08:00 Pulse 84 06/21/20 08:00 Resp 14 06/21/20 08:00 BP 112/52 L 06/21/20 08:00 Pulse Ox 100 06/20/20 19:42 Weight - Most Recent: 136.078 kg Med Orders - Current: Current Medications Acetaminophen (Tylenol) 650 mg PO Q4H PRN PRN Reason: Pain (Mild 1-3) and fever Last Admin: 06/21/20 03:24 Dose: 650 mg Documented by: Benzocaine/Menthol (Dermoplast Pain Relief [place]) 0 gm TOP Q4H PRN PRN Reason: Perineal comfort measures Last Admin: 06/20/20 20:38 Dose: 1 spray Documented by: Carboprost Tromethamine (Hemabate Ds) 250 mcg IM ASDIRECTED PRN PRN Reason: HEMORRHAGE Docusate Sodium (Colace) 100 mg PO BID PRN PRN Reason: Constipation Last Admin: 06/21/20 10:31 Dose: 100 mg Documented by: Lactated Ringer's (Ringers, Lactated) 1,000 mls @ 125 mls/hr IV ASDIRECTED [facility] Last Admin: 06/20/20 09:30 Dose: 125 mls/hr Documented by: Tranexamic Acid 1,000 mg/ (Sodium Chloride) 110 mls @ 660 mls/hr IV ONETIME PRN PRN Reason: Bleeding Oxytocin/Sodium Chloride (Pitocin In Ns 30 Unit/500 Ml) 30 unit in 500 mls @ 2 mls/hr IV TITRATE [facility]; Protocol Last Titration: 06/20/20 16:00 Dose: Infused Documented by: Ibuprofen (Motrin) 800 mg PO Q8H PRN PRN Reason: Cramping Last Admin: 06/21/20 04:47 Dose: 800 mg Documented by: Methylergonovine Maleate (Methergine) 0.2 mg IM ASDIRECTED PRN PRN Reason: Hemorrhage Misoprostol (Cytotec) 800 mcg RECTAL ASDIRECTED PRN PRN Reason: Hemorrhage Ondansetron HCl (Zofran) 4 mg IVPUSH Q4H PRN PRN Reason: Nausea/Vomiting Last Admin: 06/20/20 09:01 Dose: 4 mg Documented by: Oxytocin (Pitocin) 10 unit IM ONETIME PRN PRN Reason: Bleeding Prenat Multivit/Dickenson/Iron/Folic Ac ( Plus Iron) 1 each PO DAILY [facility] Last Admin: 06/21/20 10:29 Dose: 1 each Documented by: Simethicone (Simethicone) 80 mg PO Q4H PRN PRN Reason: Gas Sodium Chloride (Saline Flush) 10 ml FLUSH ASDIRECTED PRN PRN Reason: Keep Vein Open Discontinued Medications Diphenhydramine HCl (Benadryl) 25 mg IVPUSH ONETIME ONE Stop: 06/20/20 11:34 Last Admin: 06/20/20 11:41 Dose: 25 mg Documented by: Epinephrine HCl (Adrenalin) Confirm Administered Dose 1 mg .ROUTE .STK-MED ONE Stop: 06/20/20 08:54 Last Admin: 06/20/20 17:13 Dose: Not Given Documented by: Epinephrine HCl (Adrenalin) 0.1 mg .XX .STK-MED ONE Stop: 06/21/20 12:43 Fentanyl (Sublimaze) Confirm Administered Dose 100 mcg .ROUTE .STK-MED ONE Stop: 06/20/20 08:54 Last Admin: 06/20/20 17:13 Dose: Not Given Documented by: Fentanyl (Sublimaze) 30 mcg ITHECAL .STK-MED ONE Stop: 06/21/20 12:43 Penicillin G Potassium 5 (millunits/ Sodium Chloride) 100 mls @ 200 mls/hr IV ONETIME STA Stop: 06/19/20 22:25 Last Admin: 06/19/20 22:30 Dose: 200 mls/hr Documented by: Penicillin G Potassium 2.5 (millunits/ Sodium Chloride) 100 mls @ 200 mls/hr IV Q4H IV[facility] Last Admin: 06/20/20 16:40 Dose: Not Given Documented by: Lactated Ringer's (Ringers, Lactated) 1,000 mls @ 500 mls/hr IV BOLUS ONE Stop: 06/20/20 05:53 Last Admin: 06/20/20 09:03 Dose: 999 mls/hr Documented by: Lidocaine HCl (Xylocaine-Mpf 1%) 30 ml INJECT ASDIRECTED PRN PRN Reason: Perineal Repair Sodium Bicarbonate (Sodium Bicarbonate 4.2%) Confirm Administered Dose 2.5 meq .ROUTE .STK-MED ONE Stop: 06/20/20 08:55 Last Admin: 06/20/20 17:13 Dose: Not Given Documented by: Sodium Bicarbonate (Sodium Bicarbonate 4.2%) 0.5 meq .XX .STK-MED ONE Stop: 06/21/20 12:43 Sodium Chloride (Normal Saline) 0.4 ml IV .STK-MED ONE Stop: 06/21/20 12:43 Sufentanil Citrate (Sufenta) Confirm Administered Dose 50 mcg .ROUTE .STK-MED ONE Stop: 06/20/20 08:54 Last Admin: 06/20/20 17:13 Dose: Not Given Documented by: Sufentanil Citrate (Sufenta) 20 mcg ITHECAL .STK-MED ONE Stop: 06/21/20 12:43 - Exam General: Reports: Alert, Oriented Neck: Reports: Supple Lungs: Reports: Clear to Auscultation, Normal Respiratory Effort Cardiovascular: Reports: Regular Rate, Regular Rhythm, No Murmurs Back Exam: Reports: Normal Inspection Extremities: Normal Inspection, Pedal Edema (1+ bilaterally) Skin: Reports: Warm, Dry, Intact
== END 2020-06-21 16:30 | disposition home or self-care (01) | DRG 807 ==
LOC: DL.OBCHECK 20:28 → DL.OB 06-20 03:55 → OBSVTOIN 06-20 13:04
PROVIDERS: ADMIT Family Medicine; ATTEND Family Medicine
PROC: 3E0R3BZ Introduction of Anesthetic Agent into Spinal Canal, Percutaneous Approach (ICD-10-PCS; principal; 2020-06-20)
PROC: 10E0XZZ Delivery of Products of Conception, External Approach (ICD-10-PCS; 2020-06-20)
PROC: 00HU33Z Insertion of Infusion Device into Spinal Canal, Percutaneous Approach (ICD-10-PCS; 2020-06-20)
PROC: 10907ZC Drainage of Amniotic Fluid, Therapeutic from Products of Conception, Via Natural or Artificial Opening (ICD-10-PCS; 2020-06-20)
DX: O99.354 Diseases of the nervous system complicating childbirth (principal); Z37.0 Single live birth; O99.824 Streptococcus B carrier state complicating childbirth; G40.909 Epilepsy, unspecified, not intractable, without status epilepticus; O99.814 Abnormal glucose complicating childbirth; Z20.822 Contact with and (suspected) exposure to COVID-19; Z3A.38 38 weeks gestation of pregnancy
CPT/HCPCS: 01967; 36415; 51701; 59409; 82274; 84112; 85027; A9270-GY; J0171; J1200; J2405; J2540; J2590; J3010; J7120; U0002

== ENCOUNTER 2022-11-27 18:05 | Emergency (ER) | payer MEDICAID ==
[2022-11-27 18:24] VITALS: BP 109/67; PULSE 77
== END 2022-11-27 18:23 | disposition left against medical advice (07) ==
LOC: DL.ED 18:05
DX: Z53.21 Procedure and treatment not carried out due to patient leaving prior to being seen by health care provider (principal)

== ENCOUNTER 2023-06-10 04:31 | Inpatient (IN) | payer MEDICAID, BC ==
[2023-06-10 05:28] LABS: HEMATOCRIT 37.7 % (37.0-47.0); HEMOGLOBIN 12.2 g/dL (12.0-16.0); MEAN CORPUSCULAR HEMOGLOBIN 26.8 pg (27.0-34.0); MEAN CORPUSCULAR HGB CONC 32.4 g/dL (33.0-35.0); MEAN CORPUSCULAR VOLUME 82.7 fL (80-100); RED BLOOD CELL COUNT 4.56 10^6/uL (4.2-5.4)
[2023-06-10] MEDS ORDERED: Misoprostol 400 MCG (4 X 100 MCG TAB) RECTAL PRN ×2 (05:44→16:09)
[2023-06-10] MEDS ORDERED: Sodium Chloride 0.9% 10 ML Syringe FLUSH PRN ×2 (05:44→16:09)
[2023-06-10] MEDS ORDERED: Tranexamic Acid 1,000 MG in Sodium Chloride 0.9% 100 ML IV PRN ×2 (05:44→16:09)
[2023-06-10] MEDS ORDERED: Carboprost Tromethamine 250 MCG/1 ML Amp IM PRN ×2 (05:44→16:09)
[2023-06-10] MEDS ORDERED: Calcium Carbonate 500 MG Tab.Chew PO PRN (05:44)
[2023-06-10] MEDS ORDERED: Acetaminophen 325 MG Tab PO PRN ×2 (05:44→16:09)
[2023-06-10] MEDS ORDERED: fentaNYL 100 MCG/2 ML SDV IVPUSH PRN (05:44)
[2023-06-10] MEDS ORDERED: Methylergonovine 0.2 MG/1 ML Amp IM PRN (05:44)
[2023-06-10] MEDS ORDERED: Oxytocin/Normal Saline 30 UNIT/500 ML BAG IV SCH (05:45)
[2023-06-10] MEDS ORDERED: Albuterol 6.7 GM Inhaler INH PRN (05:50)
[2023-06-10] MEDS: Penicillin G Potassium 5 MILLUNITS in Sodium Chloride 0.9% 100 ML IV ONE (05:56)
[2023-06-10] MEDS: Lactated Ringers 1,000 ML IV SCH (05:57)
[2023-06-10] MEDS: Albuterol 0.083% 2.5 MG/3 ML Neb Soln NEB PRN (07:16)
[2023-06-10] MEDS: Penicillin G Potassium 3 MILLUNITS in Sodium Chloride 0.9% 100 ML IV SCH (09:43)
[2023-06-10] MEDS: levETIRAcetam 500 MG Tab PO SCH (09:52)
[2023-06-10] MEDS: Penicillin G Potassium 5,000,000 Unit Vial ONE ×2 (09:58)
[2023-06-10] MEDS: Lactated Ringers 1,000 ML IV ONE (13:45)
[2023-06-10] MEDS ORDERED: fentaNYL 100 MCG/2 ML SDV ONE (13:50)
[2023-06-10] MEDS ORDERED: Bupivacaine 0.25% 10 ML SDV ONE (13:51)
[2023-06-10] MEDS ORDERED: Phenylephrine HCl In 0.9% NaCl 1 MG/10 ML Syringe IVPUSH PRN (14:18)
[2023-06-10] MEDS ORDERED: ePHEDrine 50 MG/ML SDV IVPUSH PRN (14:18)
[2023-06-10] MEDS ORDERED: Ropivacaine 200 MG in Premix Bag 1 BAG EPIDUR SCH (14:30)
[2023-06-10] MEDS: Ondansetron 4 MG/2 ML SDV IVPUSH PRN (15:20)
[2023-06-10] MEDS: Oxytocin/Normal Saline 30 UNIT/500 ML BAG IV SCH (15:51)
[2023-06-10] MEDS ORDERED: Oxytocin 10 Units/1 ML SDV IM PRN (16:09)
[2023-06-10] MEDS ORDERED: Zolpidem 5 MG Tab PO PRN (16:09)
[2023-06-10] MEDS ORDERED: Simethicone 80 MG Tab.Chew PO PRN (16:09)
[2023-06-10] MEDS: Benzocaine/Menthol 20%-0.5% Spray 78 GM Cannister TOP PRN (17:36)
[2023-06-10] MEDS: Witch Hazel Medicated Pads 100/Jar TOP PRN (17:37)
[2023-06-10] MEDS: Docusate Sodium 100 MG Cap PO PRN (20:05)
[2023-06-10] MEDS: Ibuprofen 800 MG Tab PO PRN (20:05)
[2023-06-10] MEDS: Lidocaine 1% 30 ML SDV INJECT ONE (21:19)
[2023-06-10] MEDS: Calcium Carbonate 500 MG Tab.Chew PO ONE (23:13)
[2023-06-11] MEDS: Prenatal Multivitamin with Calcium/Folic Acid/Iron Tab PO SCH (07:36)
[2023-06-11 16:16] VITALS: BP 132/71; PULSE 80
[2023-06-11] MEDS ORDERED: fentaNYL 100 MCG/2 ML SDV EPIDUR ONE (16:59)
[2023-06-11] MEDS ORDERED: Bupivacaine 0.25% 10 ML SDV NERVRT ONE (16:59)
[2023-06-11] MEDS ORDERED: Ropivacaine 100 ML EPIDUR ONE (16:59)
== END 2023-06-11 17:00 | disposition home or self-care (01) | DRG 807 ==
LOC: DL.OBCHECK 04:31 → DL.OB 04:47 → OBSVTOIN 15:48 → DL.OB 15:48
PROVIDERS: ADMIT Family Medicine; ATTEND Student in an Organized Health Care Education/Training Program
PROC: 10E0XZZ Delivery of Products of Conception, External Approach (ICD-10-PCS; principal; 2023-06-10)
PROC: 10907ZC Drainage of Amniotic Fluid, Therapeutic from Products of Conception, Via Natural or Artificial Opening (ICD-10-PCS; 2023-06-10)
DX: O99.824 Streptococcus B carrier state complicating childbirth (principal); Z37.0 Single live birth; O70.0 First degree perineal laceration during delivery; Z3A.37 37 weeks gestation of pregnancy; O99.354 Diseases of the nervous system complicating childbirth; G40.909 Epilepsy, unspecified, not intractable, without status epilepticus; O76 Abnormality in fetal heart rate and rhythm complicating labor and delivery; Z88.2 Allergy status to sulfonamides; Z79.899 Other long term (current) drug therapy
CPT/HCPCS: 36415; 59409; 85027; 94010; 94640; 94667; A9270-GY; J2405; J2540; J2590; J3490; J7120; J7613-GY

== ENCOUNTER 2023-10-02 16:46 | Emergency (ER) | payer BC, MEDICAID ==
[2023-10-02 17:27] VITALS: BP 115/42; PULSE 82
[2023-10-02] MEDS: Ondansetron 4 MG/2 ML SDV IVPUSH ONE (17:41)
[2023-10-02] MEDS: fentaNYL 100 MCG/2 ML SDV IVPUSH ONE (17:41)
[2023-10-02] MEDS: Sodium Chloride 0.9% 10 ML Syringe FLUSH PRN (18:05)
[2023-10-02 18:09] LABS: BASOPHILS PERCENT AUTO 0.1 % (0.0-1.0); EOSINOPHILS PERCENT AUTO 2.1 % (1.0-3.0); HEMATOCRIT 38.9 % (37.0-47.0); HEMOGLOBIN 12.4 g/dL (12.0-16.0); LYMPHOCYTES PERCENT AUTO 13.1 % (20.5-50.1); MEAN CORPUSCULAR HEMOGLOBIN 27.9 pg (27.0-34.0); MEAN CORPUSCULAR HGB CONC 31.9 g/dL (33.0-35.0); MEAN CORPUSCULAR VOLUME 87.6 fL (80-100); NEUTROPHILS PERCENT AUTO 78.7 % (42.2-75.2); PLATELET COUNT,PLT 229 10^3/uL (150-450); RED BLOOD CELL COUNT 4.44 10^6/uL (4.2-5.4); WHITE BLOOD CELL COUNT,WBC 7.2 10^3/uL (5.0-10.0)
[2023-10-02 18:19] LABS: A/G RATIO 1.1; ALANINE AMINOTRANSFERASE,ALT 27 U/L (14-59); ALBUMIN 3.6 g/dL (3.4-5.0); ALKALINE PHOSPHATASE 74 U/L (46-116); ANION GAP 9.8 mEq/L (7-13); ASPARTATE AMNIOTRANSFERASE,AST 14 U/L (15-37); BILIRUBIN TOTAL 0.1 mg/dL (0.2-1.0); BLOOD UREA NITROGEN,BUN 24 mg/dL (7-18); C-REACTIVE PROTEIN 1.09 ng/dL (<=0.50); CALCIUM 8.2 mg/dL (8.5-10.1); CARBON DIOXIDE,CO2 29 mmol/L (21-32); CHLORIDE,CL 106 mmol/L (98-107); CREATININE 0.89 mg/dL (0.55-1.02); EST CRCL DRUG DOSING (CG) 84.68 mL/min; GLUCOSE RANDOM 98 mg/dL (70-99); MAGNESIUM 1.9 mg/dL (1.8-2.4); POTASSIUM,K 3.8 mmol/L (3.5-5.1); SODIUM,NA 141 mmol/L (136-145)
[2023-10-02 18:20] LABS: INR 0.9 (0.9-1.2); PROTHROMBIN TIME 9.8 SEC (9.0-12.0); PTT,PARTIAL THROMBOPLSTIN TIME 20.9 SEC (22.0-34.0)
[2023-10-02 18:22] LABS: LACTIC ACID 1.2 mmol/L (0.4-2.0)
[2023-10-02 18:23] LABS: ESTIMATED GFR 91 mL/min (>=60)
[2023-10-02] MEDS: Ketorolac 30 MG/ML SDV IVPUSH ONE (18:57)
[2023-10-02] MEDS: Metoclopramide 10 MG/2 ML SDV IVPUSH ONE (19:27)
[2023-10-02] MEDS: diphenhydrAMINE 50 MG/ML SDV IVPUSH ONE (19:27)
[2023-10-02] MEDS: Take Home: LORazepam 1 MG Tab, 2 Tab Pack PO ONE ×2 (19:33)
== END 2023-10-02 20:08 | disposition home or self-care (01) ==
LOC: DL.ED 16:46
DX: G40.909 Epilepsy, unspecified, not intractable, without status epilepticus (principal); R51.9 Headache, unspecified; Z88.8 Allergy status to other drugs, medicaments and biological substances
CPT/HCPCS: 36415; 70450; 80053; 83605; 83735; 84145; 85025; 85610; 85730; 86140; 93005; 96374; 96375; 99284; A9270; J1200; J1885; J2405; J2765; J3010; J3490